=== PATIENT | male | born 1950 | race Caucasian/White ===

== ENCOUNTER 2016-06-28 18:00 | Inpatient (IN) | payer BC ==
--- NOTE | ~2016-06-28 | DS ---
Unit #: [id number] #: [id number] Patient: RAF GARAY [id number] [address] [address] [id number] MR#: [id number] NAME: RAF GARAY. ROOM: 216 Age: 66 Sex: M Admission Date: 06/28/2016 : 1950 Discharge Date: 07/02/2016 Attending Physician: Daniel Alegre M.D. Referring Physician: Daniel Alegre M.D. Primary Care Physician: Con Hurtado M.D. DISCHARGE SUMMARY DIAGNOSES 1. Fever. 2. Suspected prostatitis. HOSPITAL COURSE Patient was admitted to the hospital after he had some fever and chills after a recent biopsy. PAST MEDICAL HISTORY COPD, anemia, DVT, PE, hip replacement, cochlear implant, sinus polyps, recent biopsy. MEDICATION Refer to reconciliation sheet. HOSPITAL COURSE Patient admitted to the hospital, was treated with antibiotics. At the time of discharge he was afebrile. DISCHARGE MEDICATIONS He was sent home on antibiotics. FOLLOWUP He was given instruction to follow up with Dr. Alegre after discharge. Dictated by... Gabe Ashby M.D. DIANELYS/ese TD: 08/30/2016 21:17 JOB #: [id number] Unit #: [id number] #: [id number] Patient: RAF GARAY DISCHARGE SUMMARY Page 1 of 1 X Gabe Ashby MD X DISCHARGE SUMMARY
--- NOTE | ~2016-06-28 | HP ---
Unit #: [id number] #: [id number] Patient: RAF GARAY [id number] [address] [address] [id number] I MR#: [id number] NAME: RAF GARAY. ROOM: 216 Age: 66 Sex: M Admission Date: 06/28/2016 : 1950 Attending Physician: Daniel Alegre M.D. Referring Physician: Daniel Alegre M.D. Primary Care Physician: Con Hurtado M.D. HISTORY AND PHYSICAL CHIEF COMPLAINT Post biopsy prostatitis. HISTORY This 66-year-old man presented to my office yesterday afternoon for the result of a prostate biopsy. He was complaining of dysuria and had pus at the urethral meatus. He had undergone a prostate biopsy on 06/20 and completed his antibiotics. Then on Saturday, two days later, began to experience sweats and chills after a solitary initial episode of nausea and vomiting. Despite routine counseling both before and after the prostate biopsy about the importance of calling for such symptoms, this did not occur and he spontaneously improved without treatment until developing his presenting penile discomfort and dysuria in addition to persistent malaise. Of particular concern is he said he continued an antibiotic he could not name, possibly Cipro, and he takes Coumadin which was restarted immediately after the biopsy. He was direct admitted for presumptive post biopsy prostatitis and placed on meropenem therapy overnight. Fortunately he has markedly improved, is feeling better and his dysuria has resolved. He did have four specimens containing Memo 6 carcinoma in the prostate after presenting with a PSA of 4.7 and this was discussed in a preliminary fashion with him yesterday and with his family at bedside this morning. Further discussions will occur after his improvement. PAST MEDICAL HISTORY 1. COPD. 2. Asthma. 3. History of DVT and pulmonary thromboembolus. PAST SURGICAL HISTORY 1. Left hip replacement 11/28/15. 2. Cochlear implant 2009. 3. Sinus polyps. 4. Toe bunions. ADMISSIONN MEDICATIONS Aspirin, clobetasol, Dulera, hydrocodone, Ventolin, Coumadin. ALLERGIES Latex, penicillins, Percocet, sulfa. PHYSICAL EXAMINATION Unit #: [id number] #: [id number] Patient: RAF GARAY VITAL SIGNS: On examination he is afebrile with stable vital signs as documented. HEENT: Notable for cochlear implant and decreased hearing. LUNGS: Clear. CARDIAC: Rate and rhythm regular. ABDOMEN: Soft, nontender. GENITOURINARY: Phallus normal circumcised other than pus at the meatus. Testes and epididymis normal descended. ANO-RECTAL: Digital exam not repeated. EXTREMITIES: No edema. NEUROLOGIC: Intact. DIAGNOSTIC STUDIES LABORATORY: Notable for WBC 18, improved to 16 this morning. Preliminary urine culture Gram-negative rods. IMPRESSION Postbiopsy prostatitis. PLAN Will continue Merrem pending urine cultures and, assuming WBC responds without need for CT scan, plan discharge home on six weeks of appropriate oral therapy. Dictated by Daniel Alegre M.D. HEENA/ese TD: 06/29/2016 21:23 JOB #: [id number] HISTORY AND PHYSICAL Page 1 of 1 X Daniel Alegre MD X HISTORY AND PHYSICAL
--- NOTE | ~2016-06-28 | CO ---
Unit #: [id number] #: [id number] Patient: RAF GARAY [id number] [address] [place], [place] [address] [id number] I MR#: [id number] NAME: RAF GARAY. ROOM: 216 Age: 66 Sex: M Admission Date: 06/28/2016 : 1950 Attending Physician: Daniel Alegre M.D. Primary Care Physician: Con Hurtado M.D. CONSULTATION REPORT REASON FOR CONSULTATION Coumadin management. HISTORY OF PRESENT ILLNESS The patient is a 66-year-old male with a history of COPD, asthma, history of DVT, and pulmonary embolism 6 years ago, and on chronic anticoagulation, brought to the emergency room with concerning for the prostatitis, status post biopsy of the prostate on 06/20/2016. The patient was started on empiric IV antibiotics and a Medicine consult has been placed for the Coumadin toxicity with INR up to 3.2. The patient stated that the patient has been on Coumadin for the last 6 years and has the level up and down, but never had any problems with the bleeding. The patient takes Coumadin 10 mg daily. Denies any bleeding, nausea, vomiting, chest pain, palpitation, blood in the urine or the stools. PAST MEDICAL HISTORY History of COPD, asthma, history of a DVT and pulmonary thromboembolism. PAST SURGICAL HISTORY Left hip replacement, cochlear implant, sinus polyps, and . HOME MEDICATIONS He is on aspirin, clobetasol, Dulera, hydrocodone, Ventolin, and Coumadin. ALLERGIES He is allergic to latex, penicillin, Percocet, and sulfa. SOCIAL HISTORY Denies history of smoking cigarette, alcohol, or any illicit drug abuse. FAMILY HISTORY Reviewed and none. PHYSICAL EXAMINATION GENERAL: The patient was lying on bed, not in acute distress. VITAL SIGNS: Temperature is 99, pulse 73, respirations 16, blood pressure is 106/55. HEENT: Head, atraumatic, normocephalic. Pupils are equal, round, and reactive to light and accommodation. Extraocular movements are intact. NECK: Supple. No JVD. LUNGS: Clear to auscultation bilaterally. No rhonchi. No wheezing. HEART: Regular rate and rhythm. ABDOMEN: Soft. Positive bowel sounds. Unit #: [id number] #: [id number] Patient: TANISHA,RAF O EXTREMITIES: No cyanosis. No clubbing. NEUROLOGIC: Alert, awake, oriented. No gross focal motor deficit. DIAGNOSTIC STUDIES LABORATORY RESULTS: Glucose 85, BUN 10, creatinine 0.9, sodium 139, potassium 4.2, chloride 107, bicarb 26, and calcium 8.4. INR is 3.2. WBC 10.9, hemoglobin 14, hematocrit 42.7, platelets 252. ASSESSMENT 1. Escherichia coli prostatitis. 2. Status post prostate biopsy. 3. Coumadin toxicity. 4. History of deep venous thrombosis and pulmonary embolism. PLAN To continue with empiric IV antibiotics and de-escalate the antibiotics for sensitivity by Urology and hold the Coumadin tonight and repeat the INR tomorrow and resume the Coumadin once the INR is between 2 and 3. Monitor for bleeding and check the CBC and INR in the morning and further recommendations will follow. Dictated by... Denisha West TD: 06/30/2016 22:58 JOB #: [id number] CONSULTATION REPORT Page 1 of 1 X X CONSULTATION REPORT
[~2016-06-28 18:00] MED LIST: ALBUTEROL MININEB NEB; ALBUTEROL0.83 MG/ML IH; ALBUTEROL17 GM INH; ARTHRITIS PAIN650 M3 PO; ASPIRIN81 M2 PO; CHEWABLE ASPIRI81 MG PO; COUMADIN; COUMADIN10 MG PO; COUMADIN2.5 MG PO; COUMADIN5 MG PO; DOC-Q-LACE100 MG PO; DOXYCYCLINE150 MG PO; DULERA 200 MCG/13 GM INH; FLEXERIL10 MG PO; LEVAQUIN750 MG PO; LORTAB 5/500 TA1 TA2 PO; MONTELUKAST SOD10 MG PO; NEXIUM PO; NORCO 5/325 TAB1 TAB PO; PERCOCET 10/3251 TAB PO; PREDNISONE PO; SINGULAIR PO; STOOL SOFTENER100 M1 PO; SYMBICORT; SYMBICORT INH; ZANTAC150 M1; ZANTAC150 MG PO; ZYRTEC10 M2 PO; ZYVOX600 MG PO
[2016-06-28 19:28] LABS: HEMATOCRIT 45.9 % (38.0-50.0); HEMOGLOBIN 14.6 gm/dL (13.0-16.0); MEAN CELL VOLUME 88.5 FL (83-96); MEAN CORPUSCULAR HEMOGLOBIN 28.2 PG (28-34); MEAN CORPUSCULAR HGB CONC 31.9 g/dL (30-36); RED BLOOD COUNT 5.19 X10e (3.90-5.60); RED CELL DISTRIBUTION WIDTH 14.8 % (11.0-15.5); WHITE BLOOD COUNT 18.5 X10e3 (4.0-10.5)
[2016-06-28 19:43] LABS: ALBUMIN SERUM 3.7 g/dL (3.5-5.0); BILIRUBIN,TOTAL 1.1 mg/dL (0.2-2.0); CALCIUM SERUM 8.3 mg/dL (8.4-10.2); GLOM FILT RATE Estimated 79.2 mL/min (>60); INR 1.8; POTASSIUM 4.4 mmol/L (3.5-5.1); PROTEIN TOTAL SERUM 7.7 g/dL (6.0-8.3)
[2016-06-28 19:44] LABS: PROTHROMBIN TIME (PATIENT) 19.5 SECONDS (9.6-11.5)
[2016-06-29 07:06] LABS: HEMATOCRIT 44.4 % (38.0-50.0); HEMOGLOBIN 14.2 gm/dL (13.0-16.0); MEAN CELL VOLUME 88.2 FL (83-96); MEAN CORPUSCULAR HEMOGLOBIN 28.2 PG (28-34); MEAN PLATELET VOLUME 8.6 FL (6.5-11.5); RED BLOOD COUNT 5.03 X10e (3.90-5.60); RED CELL DISTRIBUTION WIDTH 14.7 % (11.0-15.5)
[2016-06-29 07:43] LABS: BUN/CREATININE RATIO 11.11; CALCIUM SERUM 8.4 mg/dL (8.4-10.2); CREATININE SERUM 0.9 mg/dL (0.6-1.4); GLOM FILT RATE Estimated 89.9 mL/min (>60); POTASSIUM 4.2 mmol/L (3.5-5.1)
[2016-06-30 05:34] LABS: HEMATOCRIT 42.7 % (38.0-50.0); MEAN CORPUSCULAR HEMOGLOBIN 28.6 PG (28-34); MEAN CORPUSCULAR HGB CONC 32.8 g/dL (30-36); MEAN PLATELET VOLUME 8.4 FL (6.5-11.5); RED BLOOD COUNT 4.91 X10e (3.90-5.60); RED CELL DISTRIBUTION WIDTH 14.8 % (11.0-15.5); WHITE BLOOD COUNT 10.9 X10e3 (4.0-10.5)
[2016-06-30 15:07] LABS: INR 3.2
[2016-06-30 15:09] LABS: PROTHROMBIN TIME (PATIENT) 35.4 SECONDS (9.6-11.5)
[2016-07-01 05:30] LABS: HEMATOCRIT 44.6 % (38.0-50.0); HEMOGLOBIN 14.6 gm/dL (13.0-16.0); MEAN CELL VOLUME 87.5 FL (83-96); MEAN CORPUSCULAR HEMOGLOBIN 28.7 PG (28-34); MEAN CORPUSCULAR HGB CONC 32.8 g/dL (30-36); RED BLOOD COUNT 5.1 X10e (3.90-5.60); RED CELL DISTRIBUTION WIDTH 14.7 % (11.0-15.5); WHITE BLOOD COUNT 9.3 X10e3 (4.0-10.5)
[2016-07-01 05:49] LABS: INR 2.3; PROTHROMBIN TIME (PATIENT) 25.3 SECONDS (9.6-11.5)
[2016-07-02 05:52] LABS: INR 2.9; PROTHROMBIN TIME (PATIENT) 31.9 SECONDS (9.6-11.5)
[2016-07-02] MEDS ORDERED: COUMADIN7.5 MG PO (08:16)
[2016-07-02] MEDS ORDERED: NITROFURANTOIN100 M3 PO (08:20)
== END 2016-07-02 09:14 | disposition home or self-care (01) | DRG 728 ==
LOC: C2A 18:00
PROVIDERS: Internal Medicine; Urology
DX: N41.8 Other inflammatory diseases of prostate (principal); J44.9 Chronic obstructive pulmonary disease, unspecified; J45.909 Unspecified asthma, uncomplicated; Z86.718 Personal history of other venous thrombosis and embolism; Z96.642 Presence of left artificial hip joint; Z79.82 Long term (current) use of aspirin; Z79.01 Long term (current) use of anticoagulants; Z88.0 Allergy status to penicillin; Z88.2 Allergy status to sulfonamides; Z91.040 Latex allergy status; Z86.711 Personal history of pulmonary embolism; B96.20 Unspecified Escherichia coli [E. coli] as the cause of diseases classified elsewhere; T45.515A Adverse effect of anticoagulants, initial encounter
CPT/HCPCS: 80048; 80053; 85027; 85610; 87040; 87086; 87088; 87186; 94640; 94664; 94760; J2185

== ENCOUNTER 2016-09-25 08:11 | Emergency (ER) | payer BC ==
--- NOTE | ~2016-09-25 | EKG ---
PATIENT: ALONSO GARAYER UNIT #: [id number] Ventricular Rate: 70 BPM Atrial Rate: 70 BPM P-R Interval: 184 ms QRS Duration: 96 ms Q-T Interval: 382 ms QTC Calculation(Bezet): 412 ms P [place]: 51 degrees Calculated R [place]: 62 degrees Calculated T [place]: 53 degrees Diagnosis Line: Normal sinus rhythm Diagnosis Line: Normal ECG Diagnosis Line: No previous ECGs available Diagnosis Line: Confirmed by REGINA LUNA MD ([id number]) on Diagnosis Line: 09/25/2016 10:42:17 PM INTERPRETING MD: YENI
--- NOTE | ~2016-09-25 | CT16 ---
[facility] A Service of [facility] RADIOLOGY TEXT RESULTS PATIENT: RAF GARAY LOCATION: [facility] : 54 UNIT #: [id number] AGE: [address]: Arjun Berry MD SEX: M ORDER DR: [id number] [id number] [facility]. [place], [place] [address] [id number] MR#: [id number] Acc #: [id number] NAME: RAF GARAY. : 1950 SEX: M STUDY DATE/TIME: 09/25/2016 10:50 UNIT: [facility] ROOM: STUDY DESCRIPTION: CT Angio Chest for PE Attending Physician: Arjun Berry M.D. Ordering Physician: Arjun Berry M.D. Primary Care Physician: Con Hurtado M.D. MEDICAL IMAGING REPORT This report is preliminary unless electronic signature is present EXAM CTA chest. INDICATION Left-sided chest pain with pain radiating to the back and down the arm. One day duration. TECHNIQUE CT angiography of the chest utilizing 100 mL Isovue-370 IV contrast. Coronal, 3-D MIP reconstructions and standard sagittal reconstructions were obtained. This CT exam was performed with one or more of the following radiation dose reduction techniques: automatic exposure control, adjustment of mA and/or kV according to patient size, and iterative reconstruction. COMPARISON CTA of the chest dated 01/15/2014. FINDINGS There is some mild eccentric wall thickening associated with a left upper lobe pulmonary artery. This is likely a sequela of a prior pulmonary embolus. No acute pulmonary embolus is identified. There is also some mild wall thickening of a inferior right pulmonary artery. The thoracic aorta is normal in size. No pericardial or pleural effusion. No pathologically enlarged mediastinal or hilar lymph nodes. No thoracic aortic aneurysm or dissection. No pericardial or pleural effusion. No enlarged mediastinal or hilar lymph nodes. No acute osseous abnormalities. IMPRESSION [facility] A Service of [facility] & [facility] RADIOLOGY TEXT RESULTS PATIENT: RAF GARAY LOCATION: [facility] : 54 UNIT #: [id number] AGE: [address]: Arjun Berry MD SEX: M ORDER DR: 1. No evidence of acute pulmonary embolus. 2. Mild bronchial artery wall thickening in the left upper lobe and in the right lower lobe. This is likely the sequela of prior pulmonary embolus. The appearance is unchanged from the 2014 exam. No additional sequelae are identified. 3. No acute findings in the chest. Dictated by... Sandro Garcia M.D. THIS IS AN ELECTRONICALLY VERIFIED REPORT Sandro Garcia M.D. at 09/25/2016 4:48 PM REYES/preeti TD: 09/25/2016 16:23 JOB #: [id number] MEDICAL IMAGING REPORT Page 1 of 1 COPY
--- NOTE | ~2016-09-25 | CR72 ---
[facility] A Service of [facility] & [facility] RADIOLOGY TEXT RESULTS PATIENT: RAF GARAY LOCATION: [facility] : 54 UNIT #: [id number] AGE: [address]: Arjun Berry MD SEX: M ORDER DR: [id number] [facility] [address] [facility]. [place], [place] [address] [id number] E MR#: [id number] Acc #: [id number] NAME: RAF GARAY. : 1950 SEX: M STUDY DATE/TIME: 09/25/2016 8:43 UNIT: [facility] ROOM: STUDY DESCRIPTION: CR Chest Single View Portable Attending Physician: Arjun Berry M.D. Ordering Physician: Arjun Berry M.D. Primary Care Physician: Con Hurtado M.D. MEDICAL IMAGING REPORT This report is preliminary unless electronic signature is present EXAM Single view chest. COMPARISON Single portable view of the chest compared to 11/16/2015 and 05/10/2015. FINDINGS Heart and mediastinal contours within normal limits. Lungs are clear. No pleural effusion. IMPRESSION No acute cardiopulmonary findings. Dictated by... Sandro Garcia M.D. THIS IS AN ELECTRONICALLY VERIFIED REPORT Sandro Garcia M.D. at 09/25/2016 4:46 PM RPC/bright TD: 09/25/2016 12:11 JOB #: [id number] MEDICAL IMAGING REPORT Page 1 of 1 COPY
[~2016-09-25 08:11] MED LIST changes: +COUMADIN7.5 MG PO; +NITROFURANTOIN100 M3 PO
[2016-09-25 09:00] LABS: BASOPHIL# 0.1 X10e3 (0-0.3); BASOPHIL% 1.3 % (0-2.5); EOSINOPHIL% 11.2 % (0.0-7.0); HEMOGLOBIN 15.9 gm/dL (13.0-16.0); LYMPHOCYTE% 23.5 % (17.0-45.0); MEAN CELL VOLUME 87.7 FL (83-96); MEAN CORPUSCULAR HGB CONC 33.1 g/dL (30-36); MEAN PLATELET VOLUME 8.3 FL (6.5-11.5); MONOCYTE# 0.6 X10e3 (0-1.0); MONOCYTE% 7.3 % (3.0-12.0); NEUTROPHIL# 4.8 X10e3 (1.5-7.1); NEUTROPHIL% 56.7 % (40-75); PLATELET COUNT 219 X10e3 (140-420); RED BLOOD COUNT 5.48 X10e (3.90-5.60); RED CELL DISTRIBUTION WIDTH 15.5 % (11.0-15.5); WHITE BLOOD COUNT 8.5 X10e3 (4.0-10.5)
[2016-09-25 09:02] LABS: DIFF IND NO
[2016-09-25 09:11] LABS: INR 1.7; PARTIAL THROMBOPLASTIN TIME 32.4 SECONDS (23.5-31.3); PROTHROMBIN TIME (PATIENT) 18.8 SECONDS (10.0-11.7)
[2016-09-25 09:25] LABS: POC - CKMB <1.0 ng/mL (0.0-7.9); POC - TROPONIN <0.05 ng/mL (<=0.05)
[2016-09-25 09:28] LABS: ALBUMIN SERUM 3.9 g/dL (3.5-5.0); BILIRUBIN, DIRECT 0.1 mg/dL (0.0-0.2); BILIRUBIN,INDIRECT 0.6 mg/dL (0.0-0.9); BILIRUBIN,TOTAL 0.7 mg/dL (0.2-2.0); CALCIUM SERUM 9.2 mg/dL (8.4-10.2); GLOM FILT RATE Estimated 79.2 mL/min (>60); POTASSIUM 3.9 mmol/L (3.5-5.1); PROTEIN TOTAL SERUM 7.4 g/dL (6.0-8.3)
[2016-09-25 11:06] LABS: POC - CKMB <1.0 ng/mL (0.0-7.9); POC - TROPONIN <0.05 ng/mL (<=0.05)
== END 2016-09-25 13:13 | disposition home or self-care (01) ==
LOC: CED 08:11
PROVIDERS: Emergency Medicine
DX: J44.9 Chronic obstructive pulmonary disease, unspecified (principal); R09.1 Pleurisy; I26.99 Other pulmonary embolism without acute cor pulmonale; F17.210 Nicotine dependence, cigarettes, uncomplicated; Z88.2 Allergy status to sulfonamides; Z91.040 Latex allergy status; Z91.012 Allergy to eggs; Z91.018 Allergy to other foods; Z88.8 Allergy status to other drugs, medicaments and biological substances
CPT/HCPCS: 36415; 71010; 71275; 80048; 80076; 82553; 84484; 85025; 85610; 85730; 93005; 94640; 96372; 96374; 99285; J1650; J2930; Q9967